=== PATIENT | male | born 1995 | race Caucasian/White ===

== ENCOUNTER 2018-05-24 22:02 | Emergency (ER) | payer SELFPAY ==
[2018-05-24 22:30] VITALS: BP 145/84; PULSE 119; RESP 20; TEMP 98.1; O2SAT 97
[2018-05-24] MEDS ORDERED: Tetanus/Diphtheria Toxoids 0.5 ml Syringe IM ONE ×2 (22:40→22:48)
[2018-05-24] MEDS ORDERED: Lidocaine 2% w Epi 1:100,000 Inj IJ ONE ×2 (23:01→23:09)
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
[2018-05-24] MEDS ORDERED: Bacitracin 500 Units/gm Oint Foilpak UD ONE (23:57)
--- NOTE | 2018-05-25 10:40 | RAD ---
PROCEDURE: Radiographs of the Right Shoulder HISTORY: laceration shoulder COMPARISON: No prior. FINDINGS: BONES: No acute displaced fracture. The distal clavicle and underlying ribs appear intact. JOINTS: No acute dislocation. SOFT TISSUES: Large soft tissue laceration noted involving soft tissues of the shoulder. No evidence of radiopaque foreign body. IMPRESSION: Evidence of large soft tissue laceration involving the soft tissues of the shoulder. No acute displaced fracture or dislocation evident. If symptoms persist or if there is continued clinical concern, x-ray follow-up in 7-10 days should be considered.
== END 2018-05-25 00:25 | disposition home or self-care (01) ==
LOC: C.ER 22:02
DX: S41.011A Laceration without foreign body of right shoulder, initial encounter (principal); X99.1XXA Assault by knife, initial encounter; Z23 Encounter for immunization

== ENCOUNTER 2018-06-19 21:34 | Emergency (ER) | payer SELFPAY ==
[2018-06-19 21:45] VITALS: BP 132/56; PULSE 76; RESP 20; TEMP 99; O2SAT 97
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
== END 2018-06-19 22:32 | disposition home or self-care (01) ==
LOC: C.ER 21:34
DX: Z48.02 Encounter for removal of sutures (principal)